=== PATIENT | male | born 1945 | race Caucasian/White ===

== ENCOUNTER 2017-01-04 01:18 | Emergency (ER) | payer MEDICARE | END 2017-01-04 04:10 | disposition home or self-care (01) | LOC: ER1 01:18 | DX: M79.651 Pain in right thigh (principal); E11.9 Type 2 diabetes mellitus without complications | CPT/HCPCS: 99283 ==

== ENCOUNTER 2020-08-05 20:43 | Emergency (ER) | payer OTHER ==
[2020-08-05 21:42] LABS: HEMOGLOBIN 12.1 gm/dl (14.0-17.5); RED BLOOD COUNT 3.95 M/UL (4.20-5.50); WHITE BLOOD COUNT 5.8 K/UL (4.5-11.0)
[2020-08-05 21:55] LABS: BUN/CREATININE RATIO 15 (0-10)
== END 2020-08-06 00:31 | disposition home or self-care (01) ==
LOC: ER1 20:43
PROVIDERS: Family Medicine
DX: E83.42 Hypomagnesemia (principal); I10 Essential (primary) hypertension; E11.9 Type 2 diabetes mellitus without complications; E66.9 Obesity, unspecified; Z74.01 Bed confinement status
CPT/HCPCS: 36415; 36600; 71045; 80053; 81001; 82009; 82550; 82553; 82803; 83605; 83690; 83735; 83874; 84439; 84443; 84484; 85025; 85610; 87040; 93005; 99285

== ENCOUNTER 2020-08-09 17:10 | Emergency (ER) | payer OTHER, MEDICARE ==
[2020-08-09 17:38] LABS: HEMOGLOBIN 12.9 gm/dl (14.0-17.5); RED BLOOD COUNT 4.19 M/UL (4.20-5.50); WHITE BLOOD COUNT 5.6 K/UL (4.5-11.0)
[2020-08-09 17:58] LABS: BUN/CREATININE RATIO 17 (0-10)
== END 2020-08-09 23:55 | disposition home or self-care (01) ==
LOC: ER1 17:10
PROVIDERS: Emergency Medicine
DX: R07.81 Pleurodynia (principal); R53.1 Weakness; Z91.81 History of falling; R63.4 Abnormal weight loss; Z99.81 Dependence on supplemental oxygen; E11.9 Type 2 diabetes mellitus without complications; R10.10 Upper abdominal pain, unspecified; Z79.01 Long term (current) use of anticoagulants; Z87.39 Personal history of other diseases of the musculoskeletal system and connective tissue
CPT/HCPCS: 70450; 80053; 82550; 82553; 83874; 84484; 85025; 93005; 99285

== ENCOUNTER → 2020-10-29 | Outpatient (CLI) | payer OTHER, MEDICARE | LOC: WCC 12:59 | DX: E11.622 Type 2 diabetes mellitus with other skin ulcer (principal); L89.322 Pressure ulcer of left buttock, stage 2; I10 Essential (primary) hypertension; E66.09 Other obesity due to excess calories; Z79.4 Long term (current) use of insulin | CPT/HCPCS: G0463 ==

== ENCOUNTER → 2020-11-05 | Outpatient (CLI) | payer OTHER, MEDICARE | LOC: WCC 13:00 | DX: L89.322 Pressure ulcer of left buttock, stage 2 (principal); I10 Essential (primary) hypertension; E66.09 Other obesity due to excess calories; E11.622 Type 2 diabetes mellitus with other skin ulcer; Z79.4 Long term (current) use of insulin | CPT/HCPCS: G0463 ==

== ENCOUNTER → 2021-03-19 | Outpatient (CLI) | payer MEDICARE | LOC: KOH-I 13:50 | DX: M79.622 Pain in left upper arm (principal); M79.5 Residual foreign body in soft tissue | CPT/HCPCS: 73060 ==

== ENCOUNTER → 2021-04-18 | Outpatient (CLI) | payer MEDICARE | LOC: RAD 07:13 | DX: M48.02 Spinal stenosis, cervical region (principal); E04.2 Nontoxic multinodular goiter; J98.4 Other disorders of lung | CPT/HCPCS: 82962 ==

== ENCOUNTER → 2021-11-18 | Outpatient (CLI) | payer MEDICARE | LOC: KOH-I 08:41 | DX: R91.8 Other nonspecific abnormal finding of lung field (principal) | CPT/HCPCS: 71250 ==